=== PATIENT | female | born 1985 | race Caucasian/White ===

== ENCOUNTER 2020-11-18 11:14 | Outpatient (CLI) | payer OTHER ==
--- NOTE | 2020-11-21 14:20 | Ultrasound Report ---
LIMITED ULTRASOUND OF RIGHT BREAST: 11/18/2020 CLINICAL: Palpable right breast lump. Comparison is made to exam dated: 11/18/2020 mammogram - [facility]. Color flow and real-time ultrasound of the right breast 3 o'clock region were performed. Nuno scale images of the real-time examination were reviewed. There is a superficial area of curvilinear fibroglandular tissue in the right breast at 3 o'clock 9 c m from the nipple. This area of fibroglandular tissue is hypoechoic. Color flow imaging demonstrate s that there is no vascularity present or surrounding hyperemia. No posterior acoustic enhancement. N o fluid collection. This correlates as palpated. There appears to be a tract to the skin. IMPRESSION: PROBABLY BENIGN Superficial curvilinear area of fibroglandular tissue in the right breast is probably benign. Suspect that this is the sequelae of resolving infection. No abscess demonstrated. A follow-up ultrasound in 6 months is recommended to demonstrate stability. Exam findings were conveyed to the patient. Patient is advised to monitor for significant change. Cli nical follow-up as needed. This exam was interpreted at Station ID: [id number]. Electronically Signed By: Adolfo Morley M.D. slc/:11/18/2020 13:50:23 Ultrasound BI-RADS: 3 Probably benign BI-RADS CATEGORY: (3) - 3 Ultrasound [id number] 6 month follow-up LATERALITY: (B)
--- NOTE | 2020-11-21 14:20 | Mammography Report ---
BILATERAL DIGITAL DIAGNOSTIC MAMMOGRAM 3D/2D: 11/18/2020 CLINICAL: Baseline exam. Palpable right breast lump. Baseline mammogram. No prior exams were available for comparison. The tissue of both breasts is heterogeneously dense. This may lower the sensitivity of mammography. There is a 0.9 cm oval focal asymmetry with a microlobulated margin in the left breast at 9 o'clock a nterior depth. No mass seen at the right breast palpable site. No other significant masses, calcifications, or other findings are seen in either breast. IMPRESSION: INCOMPLETE: NEEDS ADDITIONAL IMAGING EVALUATION 1) The 0.9 cm oval focal asymmetry in the left breast resembles clustered cysts and is indeterminate. -A targeted ultrasound is recommended and will immediately follow. 2) Right breast palpable abnormality. No mass is seen. -A targeted ultrasound is recommended and will immediately follow. This exam was interpreted at Station ID: [id number]. NOTE: For mammograms, a report in lay terms will be sent to the patient. Approximately 15% of breast malignancies will not be visualized mammographically. In the management of a palpable breast mass, a negative mammogram must not discourage biopsy of a clinically suspicious lesion. Electronically Signed By: Adolfo Morley M.D. slc/:11/18/2020 12:23:07 ACR BI-RADS Category 0: Incomplete 3340F PARENCHYMAL PATTERN: (D) - The breast(s) demonstrate(s) heterogeneously dense fibroglandular par[place]. BI-RADS CATEGORY: (0) - 0 Ultrasound [id number] Immediate follow-up LATERALITY: (B)
--- NOTE | 2020-11-21 14:21 | Ultrasound Report ---
LIMITED ULTRASOUND OF LEFT BREAST: 11/18/2020 CLINICAL: Patient returns today to evaluate a focal asymmetry in the left breast. Comparison is made to exam dated: 11/18/2020 mammogram - [facility]. Color flow and real-time ultrasound of the left breast 9 o'clock region were performed. Nuno scale i mages of the real-time examination were reviewed. There is a 0.7 cm x 0.5 cm x 0.3 cm oval cyst in the left breast at 9 o'clock anterior depth 3 cm fro m the nipple. This oval cyst is anechoic and hypoechoic. This correlates with mammography findings. Color flow imaging demonstrates that there is an adjacent vascularity. IMPRESSION: PROBABLY BENIGN The 0.7 cm oval cyst in the left breast resembles a complicated cyst with prominent adjacent duct and /or intramammary lymph node and is probably benign. A follow-up ultrasound in 6 months is recommended to demonstrate stability. Exam findings were conveyed to the patient. This exam was interpreted at Station ID: [id number]. Electronically Signed By: Adolfo Morley M.D. slc/:11/18/2020 13:49:39 Ultrasound BI-RADS: 3 Probably benign BI-RADS CATEGORY: (3) - 3 Ultrasound [id number] 6 month follow-up LATERALITY: (B)
== END 2020-11-18 11:15 | disposition home or self-care (01) ==
LOC: DI 11:14
PROVIDERS: ATTEND Student in an Organized Health Care Education/Training Program
DX: R92.8 Other abnormal and inconclusive findings on diagnostic imaging of breast (principal); N60.02 Solitary cyst of left breast

== ENCOUNTER 2021-10-04 10:46 | Emergency (ER) | payer OTHER ==
[2021-10-04 10:56] VITALS: BP 165/104
--- NOTE | 2021-10-04 11:51 | XRAY Report ---
PROCEDURE: Forearm RT INDICATIONS: Trauma TECHNIQUE: 2 views of the forearm were acquired. COMPARISON: None. FINDINGS: Bones: No fractures or dislocations. No suspicious bony lesions. Soft tissues: No suspicious soft tissue calcifications or masses. IMPRESSION: Normal study. Reviewed by: Loy Szymanski MD on 10/04/2021 11:49 AM PDT Approved by: Loy Szymanski MD on 10/04/2021 11:49 AM PDT Station ID: [id number]
--- NOTE | 2021-10-04 11:59 | ED Physician Documentation ---
History of Present Illness - Stated complaint Stated Complaint: RT ARM PX - Chief complaint Chief Complaint: Ext Problem - Additonal information Additional information: 35-year-old female presents emergency department for evaluation of acute right arm injury. She was helping move a dresser on a samira a few days ago as they were crossing the lip/threshold of the door the samira tilted and her right arm was crushed between the door frame and the dresser. She has developed a bruise on the distal forearm radial side. Tender with movement and palpation. She is right arm dominant. No history of previous injury. Review of Systems Constitutional: denies: Fever, Chills Cardiac: reports: Reviewed and negative Respiratory: reports: Reviewed and negative GI: reports: Reviewed and negative : reports: Reviewed and negative Musculoskeletal: reports: Extremity pain PD PAST MEDICAL HISTORY - Allergies Allergies/Adverse Reactions: Allergies Allergy/AdvReac Type Severity Reaction Status Date / Time No Known Drug Allergies Allergy Verified 10/04/21 10:56 PD ED PE EXPANDED - General General: Alert, No acute distress - Extremities Extremities: Right arm (Swelling and ecchymosis distal right radial forearm. Normal flexion extension of the wrist. 2+ radial pulse. Soft compartments. No paresthesias.) Results - Vitals Vitals: Vital Signs - 24 hr 10/04/21 10:54 Temperature 36.3 C L Heart Rate 74 Respiratory 16 Rate Blood Pressure 165/104 H O2 Saturation 100 Oxygen O2 Source Room air - Rads (name of study) right arm xr Radiology: Final report received (Normal study. No acute fracture or dislocation.) PD MEDICAL DECISION MAKING - ED course Complexity details: reviewed results ED course: 35-year-old female presents with acute right arm pain after helping move a dresser a few days ago in which her arm became entrapped between the dresser and the door frame. She does have some swelling and ecchymosis on the radial side but normal movement. 2+ distal pulses. X-ray is unremarkable. Diagnosis favors contusion over occult fracture. Routine care and emergent return precautions discussed Departure - Departure Disposition: 01 Home, Self Care Clinical Impression: Contusion of right forearm, initial encounter Condition: Stable Record reviewed to determine appropriate education?: Yes Instructions: ED Fx Upper Extr Ch Comments: The x-ray of your arm is normal. As we discussed at the bedside you most likely have a contusion and bruising. I would expect this to begin to get better over the next week or so. Icing it a few times a day can be helpful. You may take Tylenol or ibuprofen [id number]. Return to the emergency department if you develop any concerns of infection.
== END 2021-10-04 12:23 | disposition home or self-care (01) ==
LOC: ED 10:46
DX: S50.11XA Contusion of right forearm, initial encounter (principal); W23.0XXA Caught, crushed, jammed, or pinched between moving objects, initial encounter
CPT/HCPCS: 99282; 99283